=== PATIENT | female | born 1985 | race Caucasian/White ===

== ENCOUNTER 2017-03-21 09:02 | Emergency (ER) | payer BC ==
[~2017-03-21] VITALS: Ht 160 cm; Wt 93.3 kg
[~2017-03-21 09:02] MED LIST: CIPRO500 MG PO; Motrin PO; NORCO 5/3251 TABLET PO; PREFERA-OB P1 TABLET PO; Percocet 5/325,Endoc PO; ZOFRAN8 MG PO
[2017-03-21 09:43] LABS: HEMATOCRIT 44.3 % (36.0-46.0); HEMOGLOBIN 14.3 G/DL (11.9-15.5); MCH 28.7 PG (29.0-34.0); MCHC 32.3 G/DL (30.0-36.0); MCV 88.8 FL (83-99); PLATELET COUNT 238 K/uL (156-360); RBC DIS.WIDTH-CV 12.7 % (11.8-14.6); RBC DIS.WIDTH-SD 41.8 % (39-53); RED BLOOD COUNT 4.99 M/uL (3.80-5.20); WHITE BLOOD COUNT 11.5 K/uL (4.1-10.2)
[2017-03-21 09:48] LABS: APPEARANCE SL.HAZY ((CLEAR)); BILIRUBIN NEGATIVE; BLOOD LARGE; COLOR YELLOW ((YELLOW)); GLUCOSE (STRIP) NEGATIVE; KETONES NEGATIVE; LEUKOCYTES NEGATIVE; NITRITE NEGATIVE; PROTEIN (STRIP) NEGATIVE; SPECIFIC GRAVITY 1.019 (1.000-1.030); UROBILINOGEN 0.2 MG/DL (0.2-1.0)
[2017-03-21 09:52] LABS: ALBUMIN 4.1 g/dL (3.2-4.8)
[2017-03-21 09:53] LABS: CHLORIDE 105 mEq/L (99-109); POTASSIUM 4.2 mEq/L (3.7-5.4); SODIUM 140 mEq/L (136-147)
[2017-03-21 09:55] LABS: BACTERIA 1+ /HPF; EPITHELIAL CELLS 1+ /HPF; MUCUS TRACE /LPF; RED BLOOD CELLS TNTC /HPF (0-5); UCUL ADDED? YES; WHITE BLOOD CELLS 0-5 /HPF (0-5)
[2017-03-21 09:55] LABS: GLUCOSE 143 mg/dL (70-99); TOTAL PROTEIN 7.8 g/dL (6.4-8.3)
[2017-03-21 09:57] LABS: TOTAL BILIRUBIN 0.4 mg/dL (0.0-1.0)
[2017-03-21 09:58] LABS: ALKALINE PHOSPHATASE 54 IU/L (3-129)
[2017-03-21 09:59] LABS: CREATININE 0.8 mg/dL (0.6-1.3); GFR ESTIMATE (CALCULATED) > 59 mL/min/
[2017-03-21 10:00] LABS: AST (GOT) 18 IU/L (2-34); UREA NITROGEN (BUN) 10 mg/dL (9-23)
[2017-03-21 10:02] LABS: ALT (GPT) 21 IU/L (3-49)
[2017-03-21 10:07] LABS: QUANTITATIVE HCG < 4.0 MIU/ML
[2017-03-21 12:22] LABS: LIPASE 21 U/L (1.0-51.0)
[2017-03-21] MEDS ORDERED: NORCO 5/3251 TABLET PO (13:14)
[2017-03-21] MEDS ORDERED: CIPRO500 MG PO (13:14)
[2017-03-21] MEDS ORDERED: FLOMAX0.4 MG PO (13:14)
[2017-03-21] MEDS ORDERED: ZOFRAN4 MG PO (13:14)
[2017-03-21 14:09] VITALS: BP 120/77
== END 2017-03-21 14:09 | disposition home or self-care (01) ==
LOC: RME 09:02 → EME 09:02 → RME 14:09
DX: N13.6 Pyonephrosis (principal); R11.2 Nausea with vomiting, unspecified
CPT/HCPCS: 74177; 80053; 81003; 83690; 84702; 85027; 87086; 99281; 99285; J0696; J1885; J2405; J7030